=== PATIENT | male | born 1995 | race Hispanic/Latino ===

== ENCOUNTER 2023-10-30 18:34 | Emergency (ER) | payer SELFPAY ==
[2023-10-30] MEDS ORDERED: Erythromycin Base 0.5% Ophth Oint 3.5 gm Tube ONE (18:59)
== END 2023-10-30 19:20 | disposition home or self-care (01) ==
LOC: NAV ERS 18:34
DX: J06.9 Acute upper respiratory infection, unspecified (principal); H10.89 Other conjunctivitis
CPT/HCPCS: 99282